=== PATIENT | female | born 1995 | race Caucasian/White ===

== ENCOUNTER 2020-01-17 21:56 | Emergency (ER) | payer MEDICAID, SELFPAY ==
[2020-01-17 21:56] VITALS: BP 114/91; PULSE 106; RESP 18; TEMP 37.1; O2SAT 100; BMI 23.2
--- NOTE | 2020-01-17 22:13 | XR_ITS ---
PROCEDURE: XR CHEST 2V CLINICAL HISTORY: chest pain COMPARISON: No exams were available for comparison FINDINGS: The cardiomediastinal silhouette and pulmonary vascularity are within normal limits. The lungs are clear without infiltrates, suspicious nodules, or pleural effusions. No acute bony abnormalities. IMPRESSION: No acute findings. Dictated by: Luis F Hebert 01/18/2020 08:43 Electronically signed by Luis F Hebert in [facility] 01/18/2020 08:43
--- NOTE | 2020-01-17 22:19 | ECG_ITS ---
APPROVED REPORT Exam: Resting ECG HR:103 bpm ECG Measurements Heart Rate 103 AXES MA 112 P 72 QRSd 84 QRS 61 QT 344 T 30 QTc 450 <Conclusion> Sinus tachycardia Otherwise normal ECG Electronically signed by : Mannie Gaviria, 01/21/2020 12:03:48
[2020-01-17 22:41] LABS: Chloride 106 mmol/L (98-107); Microscopic, Urine URINE MICROSCOPIC (MICROSCOPIC); Potassium 3.6 mmoL/L (3.5-5.1); Sodium 139 mmol/L (136-145)
[2020-01-17 22:44] LABS: Alanine Aminotransferase 46 U/L (12-78); Albumin Level 4.5 g/dl (3.5-5.0); Albumin/Globulin Ratio 1.4 (1.1-1.8); Alkaline Phosphatase 70 U/L (38-126); Anion Gap 10.6 mEq/L (5-15); Aspartate Amino Transferase 45 U/L (14-36); Bilirubin,Total 0.5 mg/dl (0.2-1.3); Blood Urea Nitrogen 12 mg/dl (7-17); Carbon Dioxide 26 mmol/L (22.0-30.0); Creatinine Clearance Estimated 88 mL/min (50-200); Estimated Glomerular Filt Rate 87 ml/min (>60); GFR (African American) 105 ML/MIN (>60); Globulin 3.3 g/dL (1.3-3.2); Total Protein,Serum 7.8 g/dl (6.3-8.2)
[2020-01-17 22:45] LABS: Calcium 8.8 mg/dl (8.4-10.2); Glucose 98 mg/dl (74-100)
[2020-01-17 22:47] LABS: Appearance,Urine CLEAR (Clear); Basophils # 0.1 K/mm3 (0-0.2); Basophils % 0.3 % (0.1-2.0); Bilirubin,Urine Negative (Negative); Blood, Urine Negative (Negative); Color,Urine YELLOW (Yellow); Eosinophils % 0.3 % (0.1-12.0); Glucose,Urine (UA) Negative (Negative); Hematocrit 45.7 % (37.0-47.0); Hemoglobin 15.1 g/dL (12.2-16.2); Ketones,Urine Negative (Negative); Leukocyte Esterase,Urine Negative (Negative); Lymphocytes # 5.2 K/mm3 (0.7-4.5); Lymphocytes % 33.7 % (10-50); Mean Corpuscular HGB Conc 33.1 g/dL (31.8-35.4); Mean Corpuscular Volume 96.6 fl (81-99); Mean Platelet Volume 8.1 fl (7.4-10.4); Monocytes # 9.6 K/mm3 (0.1-1.0); Monocytes % 62.6 % (1.7-9.3); Neutrophils # 0.5 K/mm3 (1.8-7.8); Nitrate,Urine POSITIVE (Negative); Platelet Count 245 K/mm3 (142-424); Protein,Urine 2+ (Negative); Red Blood Count 4.73 M/mm3 (4.20-5.40); Red Cell Distribution Width 12.9 % (11.5-17.5); Specific Gravity, Urine >= 1.030 (1.005-1.030); Urobilinogen,Urine 0.2 EU/dl (0.2); White Blood Count 15.4 K/mm3 (4.8-10.8)
[2020-01-17 22:53] LABS: MANUAL DIFFERENTIAL MANUAL DIFFERENTIAL (MANUAL DIFF); Neutrophils % 3.1 % (37.0-80.0)
[2020-01-17 22:57] LABS: Troponin I 0.03 ng/ml (0.00-0.034)
[2020-01-17 22:59] LABS: Barbiturates Screen,Urine Negative ng/ml (<200)
[2020-01-17 23:00] LABS: Benzodiazepines Screen,Urine Negative ng/ml (<200)
[2020-01-17 23:01] LABS: Cannabinoid Screen,Urine Positive ng/ml (<50)
[2020-01-17 23:02] LABS: Cocaine Screen,Urine Negative ng/ml (<300); Methadone Screen,Urine Negative ng/ml (<300)
[2020-01-17 23:03] LABS: Opiate Screen,Urine Positive ng/ml (<300); Phencyclidine Screen,Urine Negative ng/ml (<25)
[2020-01-17 23:04] LABS: Urine Pregnancy, HCG Qual. Negative (Negative)
[2020-01-17 23:10] LABS: Bacteria,Urine 2+ /lpf; Hyaline Casts,Urine Occasional #/lpf (0)
[2020-01-17 23:17] VITALS: BP 97/67; PULSE 85; RESP 18; TEMP 37.1; O2SAT 97
--- NOTE | 2020-01-17 23:30 | CT_ITS ---
PROCEDURE: CT ANGIO CHEST CLINCIAL INDICATION: Chest pain COMPARISON: No exams were available for comparison TECHNIQUE: IV Contrast: 70ML OPTIRAY 350 Axial images obtained with sagittal and coronal reformats. All CT scans at the facility use one or more dose reduction, viz: automated exposure control, ma/kV adjustment per patient size (including targeted exams where dose is matched to indication, i.e. head), or iterative reconstruction technique. FINDINGS: HEART AND MEDIASTINAL STRUCTURES: Unremarkable. LUNGS AND PLEURAL SPACES: Unremarkable. BONY STRUCTURES: No acute bony abnormalities apparent. UPPER ABDOMEN: Unremarkable. ADDITIONAL FINDINGS: No other significant abnormalities. IMPRESSION: Negative Dictated by: Luis F Hebert 01/18/2020 08:41 Electronically signed by Luis F Hebert in [facility] 01/18/2020 08:41
[2020-01-17 23:36] VITALS: BP 94/62; PULSE 97; O2SAT 100
[2020-01-17 23:42] LABS: Eosinophils % 1 % (0-3); Lymphocytes % 23 % (10-50); Monocytes % 2 % (2-9); Neutrophils % 74 % (42-76); Total Cells Counted 100
[2020-01-17 23:43] LABS: Platelet Estimate Normal; RBC Morphology Normal
[2020-01-17 23:56] LABS: Lactic Acid 1.1 mmol/L (0.7-2.1)
--- NOTE | 2020-01-18 00:14 | HMH.EDOD ---
ED Disposition Clinical Impression: Poisoning by opiate or related narcotic, Abnormal blood chemistry Drug overdose Qualifiers: Encounter type: initial encounter Injury intent: accidental or unintentional Qualified Code(s): T50.901A - Poisoning by unspecified drugs, medicaments and biological substances, accidental (unintentional), initial encounter Chest pain Qualifiers: Chest pain type: unspecified Qualified Code(s): R07.9 - Chest pain, unspecified Disposition: Home, Self-Care Condition on Discharge: Good Instructions: DI for Drug Overdose in Adults Additional Instructions: call dr for follow up about blood work and drug use Referrals: Prateek Palmer [Referring] - - Critical Care Critical Care Time: No Attestation: On 01/17/20, the high probability of a clinically significant, sudden or life threatening deterioration of the following system(s) required my full and direct attention, intervention and personal management. The time I documented below is in addition to time spent performing reported procedures but includes the following listed in this critical care notation. Medical Decision Making - Medical Records Medical records reviewed: Yes: I reviewed the patient's medical records. - John Inquiry Pt receiving controlled substance: No Vital Signs: 01/17/20 21:56 01/17/20 23:17 01/17/20 23:36 Temperature 98.7 F 98.7 F Temperature Source Oral Oral Pulse Rate [Right Brachial] 106 H 85 97 H Respiratory Rate 18 18 Blood Pressure [Right Arm] 114/91 H 97/67 L 94/62 L Blood Pressure Mean [Right Arm] 98 77 72 Blood Pressure Source [Right Arm] Automatic Cuff Automatic Cuff Blood Pressure Position [Right Arm] Supine 02 Sat by Pulse Oximetry 100 97 100 Oxygen Delivery Method Room Air Room Air Room Air 01/18/20 00:17 Temperature 98.1 F Temperature Source Oral Pulse Rate [Right Brachial] 105 H Respiratory Rate 18 Blood Pressure [Right Arm] 117/76 Blood Pressure Mean [Right Arm] 89 Blood Pressure Source [Right Arm] Automatic Cuff Blood Pressure Position [Right Arm] Supine 02 Sat by Pulse Oximetry 100 Oxygen Delivery Method Room Air - Lab Data Lab results reviewed: Yes: I reviewed the patient's lab results. Lab Results 01/17/20 22:30: Urine Color Yellow, Urine Appearance Clear, Urine pH 7.0, Ur Specific [place] >= 1.030, Urine Protein 2+, Urine Glucose (UA) Negative, Urine Ketones Negative, Urine Blood Negative, Urine Nitrate Positive, Urine Bilirubin Negative, Urine Urobilinogen 0.2, Ur Leukocyte Esterase Negative, Urine WBC 3-5, Ur Squamous Epith Cells 3-5, Urine Bacteria 2+, Hyaline Casts Occasional 01/17/20 22:30: WBC 15.4 H, RBC 4.73, Hgb 15.1, Hct 45.7, MCV 96.6, MCH 32.0 H, MCHC 33.1, RDW 12.9, Plt Count 245, MPV 8.1, Neut % (Auto) 3.1 L, Lymph % (Auto) 33.7, [place] % (Auto) 62.6 H, Eos % (Auto) 0.3, Baso % (Auto) 0.3, Neut # (Auto) 0.5 L*, Lymph # (Auto) 5.2 H, [place] # (Auto) 9.6 H, Eos # (Auto) 0.0, Baso # (Auto) 0.1, Total Counted 100, Neutrophils % (Manual) 74, Lymphocytes % (Manual) 23, Monocytes % (Manual) 2, Eosinophils % (Manual) 1, Differential Comment , Platelet Estimate Normal, RBC Morphology Normal 01/17/20 22:30: Urine HCG, Qual Negative 01/17/20 22:30: Sodium 139, Potassium 3.6, Chloride 106, Carbon Dioxide 26, Anion Gap 10.6, BUN 12, Creatinine 0.80, Estimated Creat Clear 88, Estimated GFR 87, Est GFR ( Amer) 105, Glucose 98, Calcium 8.8, Total Bilirubin 0.5, AST 45 H, ALT 46, Alkaline Phosphatase 70, Troponin I 0.03, Total Protein 7.8, Albumin 4.5, Globulin 3.3 H, Albumin/Globulin Ratio 1.4 01/17/20 22:30: Urine Opiates Screen Positive H, Urine Methadone Screen Negative, Ur Barbituates Screen Negative, Ur Phencyclidine Scrn Negative, Ur Amphetamines Screen Not Reportable, U Benzodiazepines Scrn Negative, Urine Cocaine Screen Negative, U Marijuana (THC) Screen Positive H 01/17/20 23:40: Lactate 1.1 Result diagrams: 01/17/20 22:30 01/17/20 22:30 Orders (Tests/Meds): ED M
[2020-01-18 00:17] VITALS: BP 117/76; PULSE 105; RESP 18; TEMP 36.7; O2SAT 100
[2020-01-18 00:55] VITALS: BP 100/67; PULSE 127; O2SAT 97
[2020-01-18 02:05] VITALS: BP 115/72; PULSE 108; RESP 16; TEMP 36.7; O2SAT 97
[2020-01-19 23:35] LABS: Peripheral Smear Review Scanned Result
[2020-01-22 23:10] LABS: Amphetamine Positive (.); Amphetamines Positive (.); Methamphetamine Positive (.)
[2020-01-23 04:45] LABS: Amphetamine (GC/MS) >4000 ng/mL (Cutoff=500); Methamphetamine (GC/MS) >4000 ng/mL (Cutoff=500)
== END 2020-01-18 02:09 | disposition home or self-care (01) ==
PROVIDERS: Emergency Provider Emergency Medicine; PCP Family Medicine
DX: R07.9 Chest pain, unspecified (principal); T40.2X1A Poisoning by other opioids, accidental (unintentional), initial encounter; F17.210 Nicotine dependence, cigarettes, uncomplicated
CPT/HCPCS: 36415; 71046; 71275; 80053; 80305; 80324; 81001; 81025; 83605; 84484; 85007; 85025; 87040; 87086; 87088; 87186; 93005; 96365; 99284; Q9967

== ENCOUNTER 2020-01-23 17:18 | Emergency (ER) | payer MEDICAID, SELFPAY ==
--- NOTE | 2020-01-23 17:17 | ECG_ITS ---
APPROVED REPORT Exam: Resting ECG HR:122 bpm ECG Measurements Heart Rate 122 AXES ND 124 P 81 QRSd 76 QRS 81 QT 302 T -24 QTc 430 <Conclusion> Sinus tachycardia Possible Left atrial enlargement T wave abnormality, consider inferior ischemia Abnormal ECG Electronically signed by : Andres Anthony, 01/27/2020 14:01:45
[2020-01-23 17:18] VITALS: BP 120/94; PULSE 120; RESP 18; TEMP 36.9; O2SAT 100; BMI 24.2
[2020-01-23 17:25] VITALS: BMI 24.2
--- NOTE | 2020-01-23 17:27 | CT_ITS ---
PROCEDURE: CT ANGIO CHEST CLINCIAL INDICATION: CHEST PAIN/CPR Chest pain, recent overdose with CPR COMPARISON: CT ANGIO CHEST from 01/17/2020 TECHNIQUE: IV Contrast: 70ML OPTIRAY 350 Axial images obtained with sagittal and coronal reformats. All CT scans at the facility use one or more dose reduction, viz: automated exposure control, ma/kV adjustment per patient size (including targeted exams where dose is matched to indication, i.e. head), or iterative reconstruction technique. FINDINGS: HEART AND MEDIASTINAL STRUCTURES: Unremarkable. No evidence of pulmonary embolus or aortic aneurysm or dissection LUNGS AND PLEURAL SPACES: There is minimal haziness of the lungs on both sides nonspecific. No definite lobar consolidation or collapse. BONY STRUCTURES: No acute bony abnormalities apparent. UPPER ABDOMEN: Unremarkable. ADDITIONAL FINDINGS: No other significant abnormalities. IMPRESSION: No evidence of acute pulmonary embolus or aortic aneurysm or dissection. Mild generalized haziness of the lungs nonspecific Dictated by: Lucas Rodriguez MD 01/24/2020 09:00 Electronically signed by Lucas Rodriguez MD in [facility] 01/24/2020 09:00
[2020-01-23 17:34] LABS: Microscopic, Urine URINE MICROSCOPIC (MICROSCOPIC)
[2020-01-23 17:35] LABS: Basophils # 0.1 K/mm3 (0-0.2); Basophils % 0.8 % (0.1-2.0); Eosinophils # 0.1 K/mm3 (0.0-0.4); Eosinophils % 0.7 % (0.1-12.0); Hematocrit 45.5 % (37.0-47.0); Hemoglobin 15.8 g/dL (12.2-16.2); Lymphocytes # 4.8 K/mm3 (0.7-4.5); Lymphocytes % 55.1 % (10-50); Mean Corpuscular HGB Conc 34.7 g/dL (31.8-35.4); Mean Corpuscular Hemoglobin 32.5 pg (27.0-31.2); Mean Corpuscular Volume 93.8 fl (81-99); Mean Platelet Volume 8.1 fl (7.4-10.4); Monocytes # 3.6 K/mm3 (0.1-1.0); Monocytes % 41.9 % (1.7-9.3); Neutrophils # 0.1 K/mm3 (1.8-7.8); Neutrophils % 1.6 % (37.0-80.0); Platelet Count 268 K/mm3 (142-424); Red Blood Count 4.85 M/mm3 (4.20-5.40); Red Cell Distribution Width 12.7 % (11.5-17.5); White Blood Count 8.7 K/mm3 (4.8-10.8)
[2020-01-23 17:36] LABS: MANUAL DIFFERENTIAL MANUAL DIFFERENTIAL (MANUAL DIFF)
[2020-01-23 17:37] LABS: Chloride 103 mmol/L (98-107); Sodium 139 mmol/L (136-145); Urine Pregnancy, HCG Qual. Negative (Negative)
[2020-01-23 17:39] VITALS: BP 122/79; PULSE 114; O2SAT 99
[2020-01-23 17:39] LABS: Alanine Aminotransferase 42 U/L (12-78); Alkaline Phosphatase 79 U/L (38-126); Aspartate Amino Transferase 40 U/L (14-36); Bilirubin,Total 0.6 mg/dl (0.2-1.3); Blood Urea Nitrogen 10 mg/dl (7-17); Creatinine Clearance Estimated 105 mL/min (50-200); Estimated Glomerular Filt Rate 101 ml/min (>60); GFR (African American) 122 ML/MIN (>60)
[2020-01-23 17:40] LABS: Appearance,Urine CLEAR (Clear); Bilirubin,Urine Negative (Negative); Blood, Urine Negative (Negative); Color,Urine YELLOW (Yellow); Glucose,Urine (UA) Negative (Negative); Ketones,Urine Negative (Negative); Leukocyte Esterase,Urine Negative (Negative); Nitrate,Urine POSITIVE (Negative); Protein,Urine Negative (Negative); Urobilinogen,Urine 0.2 EU/dl (0.2)
[2020-01-23 17:40] LABS: Albumin Level 4.8 g/dl (3.5-5.0); Albumin/Globulin Ratio 1.4 (1.1-1.8); Calcium 9.9 mg/dl (8.4-10.2); Carbon Dioxide 26 mmol/L (22.0-30.0); Globulin 3.5 g/dL (1.3-3.2); Glucose 70 mg/dl (74-100); Total Protein,Serum 8.3 g/dl (6.3-8.2)
[2020-01-23 17:45] LABS: Bacteria,Urine 2+ /lpf
[2020-01-23 17:48] VITALS: BP 99/75; PULSE 107; RESP 18; O2SAT 99
[2020-01-23 17:48] LABS: Barbiturates Screen,Urine Negative ng/ml (<200); Benzodiazepines Screen,Urine Negative ng/ml (<200)
[2020-01-23 17:49] LABS: Cannabinoid Screen,Urine Negative ng/ml (<50)
[2020-01-23 17:50] LABS: Cocaine Screen,Urine Negative ng/ml (<300); Methadone Screen,Urine Negative ng/ml (<300)
[2020-01-23 17:51] LABS: Opiate Screen,Urine Positive ng/ml (<300)
[2020-01-23 17:52] LABS: Phencyclidine Screen,Urine Negative ng/ml (<25)
[2020-01-23 17:55] LABS: Lymphocytes % 28 % (10-50); Monocytes % 6 % (2-9); Neutrophils % 66 % (42-76); Platelet Estimate Normal; RBC Morphology Normal; Total Cells Counted 100
[2020-01-23 17:57] LABS: Troponin I < 0.01 ng/ml (0.00-0.034)
[2020-01-23 18:24] VITALS: BP 139/63; PULSE 80; RESP 18; O2SAT 95
--- NOTE | 2020-01-23 18:27 | HMH.EDCP ---
ED Disposition Clinical Impression: Costalchondritis, Poisoning by opiate or related narcotic Disposition: Home, Self-Care Condition on Discharge: Good Referrals: Maninder Kimbrough [Primary Care Provider] - - Critical Care Critical Care Time: No Attestation: On 01/23/20, the high probability of a clinically significant, sudden or life threatening deterioration of the following system(s) required my full and direct attention, intervention and personal management. The time I documented below is in addition to time spent performing reported procedures but includes the following listed in this critical care notation. Medical Decision Making - Medical Records Medical records reviewed: Yes: I reviewed the patient's medical records. - John Inquiry Pt receiving controlled substance: No Vital Signs: 01/23/20 17:18 01/23/20 17:39 01/23/20 17:48 Temperature 98.4 F Temperature Source Oral Pulse Rate [Right] 120 H 114 H 107 H Respiratory Rate 18 18 Blood Pressure [Right Arm] 120/94 H 122/79 99/75 L Blood Pressure Mean [Right Arm] 102 93 83 Blood Pressure Source [Right Arm] Automatic Cuff Blood Pressure Position [Right Arm] Sitting 02 Sat by Pulse Oximetry 100 99 99 Oxygen Delivery Method Room Air Room Air Room Air 01/23/20 18:24 Temperature Temperature Source Pulse Rate [Right] 80 Respiratory Rate 18 Blood Pressure [Right Arm] 139/63 Blood Pressure Mean [Right Arm] 88 Blood Pressure Source [Right Arm] Blood Pressure Position [Right Arm] 02 Sat by Pulse Oximetry 95 Oxygen Delivery Method Room Air - Lab Data Lab results reviewed: Yes: I reviewed the patient's lab results. Lab Results 01/23/20 17:20: WBC 8.7, RBC 4.85, Hgb 15.8, Hct 45.5, MCV 93.8, MCH 32.5 H, MCHC 34.7, RDW 12.7, Plt Count 268, MPV 8.1, Neut % (Auto) 1.6 L, Lymph % (Auto) 55.1 H, [place] % (Auto) 41.9 H, Eos % (Auto) 0.7, Baso % (Auto) 0.8, Neut # (Auto) 0.1 L*, Lymph # (Auto) 4.8 H, [place] # (Auto) 3.6 H, Eos # (Auto) 0.1, Baso # (Auto) 0.1, Total Counted 100, Neutrophils % (Manual) 66, Lymphocytes % (Manual) 28, Monocytes % (Manual) 6, Differential Comment , Platelet Estimate Normal, RBC Morphology Normal 01/23/20 17:20: Urine HCG, Qual Negative 01/23/20 17:20: Sodium 139, Potassium 4.0, Chloride 103, Carbon Dioxide 26, Anion Gap 14.0, BUN 10, Creatinine 0.70, Estimated Creat Clear 105, Estimated GFR 101, Est GFR ( Amer) 122, Glucose 70 L, Calcium 9.9, Total Bilirubin 0.6, AST 40 H, ALT 42, Alkaline Phosphatase 79, Troponin I < 0.01, Total Protein 8.3 H, Albumin 4.8, Globulin 3.5 H, Albumin/Globulin Ratio 1.4 01/23/20 17:24: Urine Color Yellow, Urine Appearance Clear, Urine pH 6.0, Ur Specific [place] 1.020, Urine Protein Negative, Urine Glucose (UA) Negative, Urine Ketones Negative, Urine Blood Negative, Urine Nitrate Positive, Urine Bilirubin Negative, Urine Urobilinogen 0.2, Ur Leukocyte Esterase Negative, Urine RBC None, Urine WBC 3-5, Ur Squamous Epith Cells 3-5, Urine Bacteria 2+ 01/23/20 17:24: Urine Opiates Screen Positive H, Urine Methadone Screen Negative, Ur Barbituates Screen Negative, Ur Phencyclidine Scrn Negative, Ur Amphetamines Screen TNP, U Benzodiazepines Scrn Negative, Urine Cocaine Screen Negative, U Marijuana (THC) Screen Negative Result diagrams: 01/23/20 17:20 01/23/20 17:20 Orders (Tests/Meds): ED MEDICATIONS Generic Name Dose Route Start Last Admin Trade Name Freq PRN Reason Stop Dose Admin Sodium Chloride 1,000 mls @ 999 mls/hr 01/23/20 17:30 01/23/20 17:34 Sod Chlor 0.9% 1000ml Bag IV 01/23/20 18:30 999 mls/hr .Q1H1M ALICIA Administration Discontinued Medications Generic Name Dose Route Start Last Admin Trade Name Freq PRN Reason Stop Dose Admin Ioversol 70 ml 01/23/20 18:06 01/23/20 18:07 Rad-Optiray 350 150ml Vial IV 01/23/20 18:07 70 ml ONCE ONE Administration Sodium Chloride 50 ml 01/23/20 18:06 01/23/20 18:07 Rad-Ns 50ml Vial IV 01/23/20 18:07 50 ml
[2020-01-23 18:49] VITALS: BP 132/85; PULSE 100; RESP 18; TEMP 36.8; O2SAT 98
[2020-01-29 15:52] LABS: Amphetamine Positive (.); Amphetamines Positive (.); Methamphetamine Positive (.)
[2020-01-29 16:29] LABS: Amphetamine (GC/MS) 4746 ng/mL (Cutoff=500); Methamphetamine (GC/MS) >4000 ng/mL (Cutoff=500)
== END 2020-01-23 18:59 | disposition home or self-care (01) ==
PROVIDERS: Emergency Provider Family Medicine; PCP Family Medicine
DX: M94.0 Chondrocostal junction syndrome [Tietze] (principal); F11.10 Opioid abuse, uncomplicated; F17.210 Nicotine dependence, cigarettes, uncomplicated
CPT/HCPCS: 71275; 80053; 80305; 80324; 81001; 81025; 84484; 85007; 85025; 87086; 87088; 87186; 93005; 96365; 99284; Q9967

== ENCOUNTER 2024-06-05 10:31 | Emergency (ER) | payer MEDICAID, SELFPAY ==
[2024-06-05 10:34] VITALS: BP 120/75; PULSE 88; RESP 18; TEMP 36.7; O2SAT 100; BMI 24.2
--- NOTE | 2024-06-05 10:56 | HMH.EDGENADL ---
Discharge Plan Disposition Patient Disposition: Home, Self-Care Prescriptions Prescriptions: New bacitracin zinc 500 unit/gram ointment 1 applic topical Q6H Qty: 28.4 0RF Referrals Follow up/Referrals: Maninder Kimbrough MD [Primary Care Provider] - See instructions Activity Restrictions/Add. Instructions Additional Instructions/Restrictions: Apply ointment up to 4 times daily. Follow-up with your family doctor regarding this visit to the emergency department. Return to your family doctor or the ED if you have any further concerning symptoms. Clinical Impressions Clinical Impression: Superficial burn Instructions Patient Instructions: DI for Skin Abscess Print Language Print Language: Divehi Discharge ED Provider: Sunny Lopez General Adult HPI General Chief complaint: Skin/Abscess/Foreign Body Stated complaint: AO 06/05/24 0845, burn to left arm Time Seen by Provider: 06/05/24 10:37 Mode of Arrival: Ambulatory Source of Information: Patient Limitations: No Limitations Description of Symptoms (Recalled from ER Triage Doc. by RN): PT REPORTS BURN TO LEFT FOREARM WHILE AT WORK FROM HOT WATER THIS AM History of Present Illness HPI narrative: Please note that above description of symptoms, in this electronic medical record under categorization of recalled from ER triage doctor by RN are reflective of an initial nursing assessment, however, is not reflective of my full history and physical exam that was personally taken and clarified. Consequentially, this preceding description of symptoms, which may include the patient's categorized chief complaint in the EMR, do not reflect my personal clinical impression, and the ultimate description of history of present illness and patient stated complaints should be deferred to this section of the note. Unless stated otherwise or congruent with this section of the note, additional signs, symptoms, or incongruence should be interpreted as inaccurate with my clinical impression. Related Data Previous Rx's ?Medication ?Instructions ?Recorded bacitracin zinc 500 unit/gram 1 applic topical Q6H #28.4 grams 06/05/24 topical ointment Allergies Allergy/AdvReac Type Severity Reaction Status Date / Time No Known Allergies Allergy Unverified 07/12/17 14:54 [facility] Disclaimer: The information contained in this section may have been updated after the patient was seen, as this information can be updated by other users. Social History Smoking Status: Current every day smoker tobacco type: cigarettes packs per day: 1 alcohol intake: current substance use type: unknown current occupational status: employed Travel in the last 8 weeks: None caffeine: Yes Other Medical History Have you received the Flu Vaccine for this season: Yes Have you received the Pneumonia Vaccine: No ROS Obtained: Yes All systems reviewed & no additional complaints except as documented Physical Exam General General appearance: alert Head Head exam: atraumatic and normocephalic Eye Eye exam: Present normal appearance, PERRL and EOMI Neck Neck exam: Present normal inspection, full ROM and trachea midline Respiratory Respiratory exam: Absent respiratory distress, wheezes, stridor, accessory muscle use or prolonged expiratory phase Cardiovascular Cardiovascular exam: Present other (Pulses equal symmetric in upper and lower extremities) Abdominal Exam Abdominal exam: Present soft; Absent distention, tenderness or pulsatile mass Extremities Exam Extremities exam: Absent edema Neurological Exam Neurological exam: Present alert, oriented X3 and CN II-XII intact; Absent motor sensory deficit Skin Skin exam: Present warm, dry and erythema; Absent diaphoresis Medical Decision Making Medical Records Medical records reviewed: Yes I reviewed the patient's medical records. Screening: Per USPSTF and CDC recommendations, given the prevalence of disease in our region, it is our hospital?s policy to screen for HIV and viral Hepatitis for all patients aged 18 and over and those with ongoing risk factors. John Inquiry Pt receiving controlled substance: No John was queried for this patient: No Vital Signs: 06/05/24 10:34 Temperature 98.0 F Temperature Source Oral Pulse Rate [Radial] 88 Respiratory Rate 18 Blood Pressure [Right Arm] 120/75 Blood Pressure Mean [Right Arm] 90 Blood Pressure Source [Right Arm] Automatic Cuff Blood Pressure Position [Right Arm] Sitting 02 Sat by Pulse Oximetry 100 Oxygen Delivery Method Room Air Medical Decision Narrative: Otherwise healthy 28-year-old female presenting with water burn left arm. Patient states that she was at work when hot water spilled on her left arm. Having erythema, significant pain. Came in for further evaluation. This happened just before arrival. Patient states that pain is moderate, does not radiate, has not taken anything for it. History was obtained via conversation with patient. On arrival, patient hemodynamically stable, alert, oriented x4, appropriate, GCS 15, moving all extremities spontaneously, pupils equal and reactive to light. Full physical exam performed and significant for 8 cm x 4 cm oblong area of erythema on mid forearm dorsally left upper extremity. No evidence of blistering. Sensate, erythematous. Differential includes superficial burn, among others. Because patient so well-appearing, no other labs or imaging were deemed necessary, although they were considered. Bacitracin and zinc applied, this also sent to pharmacy. Because patient at baseline without signs or symptoms of clinical decompensation, deemed appropriate for discharge. I discussed my clinical impression with patient and answered all questions. At this time, the evidence for any other entities in the differential is insufficient to warrant any further testing or ED observation. This was explained as well. Advisory was given that persistent or worsening symptoms require further evaluation. I confirmed the understanding of this discussion. Griddle [employer] disclaimer Much of this encounter note is an electronic joint maker machine spoken language to printed text. Electronic joint maker machine of the spoken language may permit errors. Although I have reviewed the note, some errors may still exist. Critical Care Critical Care Time Critical Care Time: No
[2024-06-05] MEDS: BACITRACIN ZINC OINT 30GM TUBE TP (11:08)
[2024-06-05 11:14] VITALS: BP 113/76; PULSE 81; RESP 18; TEMP 36.9; O2SAT 100
== END 2024-06-05 11:00 | disposition home or self-care (01) ==
PROVIDERS: Emergency Provider Emergency Medicine; PCP Family Medicine
DX: T22.112A Burn of first degree of left forearm, initial encounter (principal)
CPT/HCPCS: 99282

== ENCOUNTER 2024-07-07 10:24 | Emergency (ER) | payer SELFPAY ==
[2024-07-07] VITALS (7 sets, daily range): BP systolic 110–151; BP diastolic 70–88; PULSE 76–88; RESP 16–20; TEMP 36.7–36.9; O2SAT 97–100; BMI 28.3
--- NOTE | 2024-07-07 11:41 | ED_ITS ---
Discharge Plan Disposition Patient Disposition: Home, Self-Care Condition: Good Prescriptions Prescriptions: New potassium chloride 20 mEq tablet extended release 20 meq PO BID Qty: 10 0RF Referrals Follow up/Referrals: Maninder Ruffin [Primary Care Provider] - See instructions Activity Restrictions/Add. Instructions Additional Instructions/Restrictions: Your potassium was low here in the ED and I am given you potassium to take for 5 days. Please call your PCP for repeat potassium level once you are done. Also call your OB for initial appointment. If you have any further problems or concerns please return to the ED immediately Clinical Impressions Clinical Impression: Abdominal pain, Instructions Patient Instructions: Diet, DI for Acute Abdominal Pain Print Language Print Language: Bengali Discharge ED Provider: Jenny Whelan [facility] [place] [facility]PI <Lit Mathias APRN - Last Filed: 07/07/24 11:41> General Chief complaint: Abdominal Pain Stated complaint: Abd. pain, no period 2 mths Time Seen by Provider: 07/07/24 11:40 Related Data Previous Rx's ?Medication ?Instructions ?Recorded potassium chloride 20 mEq 20 meq PO BID #10 tabs 07/07/24 tablet,extended release Allergies Allergy/AdvReac Type Severity Reaction Status Date / Time No Known Allergies Allergy Unverified 07/12/17 14:54 <Martina Roach (ED), [employer] - Last Filed: 07/07/24 15:35> History of Present Illness Provider Complaint: This is a 29-year-old female who presents today for complaint of lower abdominal pain that has been going on for the last month. She does have a history of endometriosis in the past. She says that she has been worried about this since she started spotting in May 30. She says typically her periods are irregular and has been on the pill but stopped the pill recently. Her last menstrual period was May 30 where she spotted for couple hours and then stopped. This made her suspicious but she did not take a test until yesterday. The test were positive. She took 4. She has no bleeding. She denies any fevers, chills, nausea or vomiting at this time. She does have one 8-year-old child that she delivered . She has had no history of miscarriages or difficulty during in the past. Her urine was normal at the [facility] today. She was sent over here for a ultrasound. [facility] <Lit Mathias APRN - Last Filed: 07/07/24 11:41> [facility] Disclaimer: The information contained in this section may have been updated after the patient was seen, as this information can be updated by other users. Social History Smoking Status: Current every day smoker tobacco type: cigarettes packs per day: 1 alcohol intake: current substance use type: unknown current occupational status: employed Travel in the last 8 weeks: None caffeine: Yes Have you lived/traveled outside [place] in past 30 days?: No Contact w/someone who lives/traveled outside US past 30 days?: No Exposure to someone with infectious disease in past 14 days?: No Do you have a fever (greater than 100.4 F or 38 C)?: No Have you tested positive for COVID-19: No Exposed to someone with COVID-19 in past 14 days?: No Do you have a sore throat?: No Do you have a cough?: No Do you have any weakness?: No Do you have any diarrhea?: No Are you experiencing any unusual bleeding?: No Do you have any muscle aches/pain?: No Do you have any abdominal pain?: Yes Are you experiencing loss of taste or smell?: No <Martina Roach (ED), [employer] - Last Filed: 07/07/24 15:35> ROS Obtained: Yes Systems reviewed as appropriate & no additional complaints except as documented Constitutional Constitutional: Reports as per HPI Physical Exam <Martina Roach (ED), [employer] - Last Filed: 07/07/24 15:35> General General appearance: alert and in no apparent distress Head Head exam: atraumatic and normocephalic Eye Eye exam: Present normal appearance, PERRL and EOMI ENT ENT exam: Present normal oropharynx and mucous membranes moist Neck Neck exam: Present normal inspection, full ROM and trachea midline Chest Chest inspection: Present normal inspection Respiratory Respiratory exam: Present normal lung sounds bilaterally Cardiovascular Cardiovascular exam: Present regular rate, normal rhythm, normal heart sounds, +S1 and +S2 Abdominal Exam Abdominal exam: Present soft and normal bowel sounds Extremities Exam Extremities exam: Present normal inspection, full ROM and normal capillary refill Back Exam Back exam: Present normal inspection Neurological Exam Neurological exam: Present alert, oriented X3 and normal gait Skin Skin exam: Present warm, dry and intact Medical Decision Making <Lit Stew, [employer] - Last Filed: 07/07/24 11:41> Medical Records Screening: Per USPSTF and CDC recommendations, given the prevalence of disease in our region, it is our hospital?s policy to screen for HIV and viral Hepatitis for all patients aged 18 and over and those with ongoing risk factors. Lab Data 07/07/24 12:45 07/07/24 12:45 <Martina Roach (ED), [employer] - Last Filed: 07/07/24 15:35> John Inquiry Pt receiving controlled substance: No John was queried for this patient: No Medical Decision Narrative: Insert review patient is a 29-year-old female presenting to the emergency department for evaluation of lower abdominal pain and positive test yesterday. She went to the urgent treatment center today and was also positive again in her urine for .. Patient is hemodynamically stable and nontoxic-appearing upon arrival, afebrile. Differential diagnosis includes ectopic, normal , miscarriage among others. Workup will be conducted with hematologic labs, specific imaging including ultrasound. Initial inventions include urine test, basic labs and ultrasound. Initial workup reviewed by me positive hCG at 11,868 with an ultrasound with the embryo in the uterus, read by Dr Whelan. Imaging informally interpreted by me and remarkable for 5 week 3 days gestation in uterus. Ultrasound was not formally read but Dr Whelan okay with discharging with the informal read. Upon repeat evaluation patient's pain is improved. Patient to follow up with PCP for repeat potassium as it was 2.9. She received 40 Meq here in the ED. She is also to follow with her OB. Patient safe to discharge home.
[2024-07-07 11:49] LABS: Apearance,Urine Clear (Clear); Color,Urine Orange (Yellow)
[2024-07-07 11:50] LABS: Bilirubin,Urine Negative (Negative); Blood, Urine Negative (Negative); Glucose,Urine (UA) Negative (Negative); Ketones,Urine TRACE (Negative); Protein,Urine 1+ (Negative); Specific Gravity, Urine 1.025 (1.005-1.030); UTC Leukocyte Esterase,Urine Negative (Negative); UTC Nitrate,Urine Negative (Negative); UTC Pregnancy Test, Urine Positive (Negative); Urobilinogen,Urine 0.2 EU/dl (0.2)
--- NOTE | 2024-07-07 12:30 | ED_ITS ---
<Statement entered by Jenny Whelan DO - 07/07/24 15:54> I was consulted by the DENNISE, and we discussed the complexity of the problems being addressed. I approved the treatment and management plan for this patient's care in the emergency department, thus performing a substantive portion of the medical decision making. Jenny Whelan DO Discharge Plan Disposition Patient Disposition: Home, Self-Care Condition: Good Prescriptions Prescriptions: New potassium chloride 20 mEq tablet extended release 20 meq PO BID Qty: 10 0RF Referrals Follow up/Referrals: Maninder Ruffin [Primary Care Provider] - See instructions Activity Restrictions/Add. Instructions Additional Instructions/Restrictions: Your potassium was low here in the ED and I am given you potassium to take for 5 days. Please call your PCP for repeat potassium level once you are done. Also call your OB for initial appointment. If you have any further problems or concerns please return to the ED immediately Clinical Impressions Clinical Impression: Abdominal pain, Instructions Patient Instructions: Diet, DI for Acute Abdominal Pain Print Language Print Language: Yoruba Discharge ED Provider: Jenny Whelan General Adult HPI <Jenny Whelan DO - Last Filed: 07/07/24 15:55> General Chief complaint: Abdominal Pain Stated complaint: Abd. pain, no period 2 mths Time Seen by Provider: 07/07/24 11:40 Mode of Arrival: Ambulatory Source of Information: Patient Limitations: No Limitations Description of Symptoms (Recalled from ER Triage Doc. by RN): lower abdominal pain. positive preg History of Present Illness HPI narrative: Provider Complaint: This is a 29-year-old female who presents today for complaint of lower abdominal pain that has been going on for the last month. She does have a history of endometriosis in the past. She says that she has been worried about this since she started spotting in May 30. She says typically her periods are irregular and has been on the pill but stopped the pill recently. Her last menstrual period was May 30 where she spotted for couple hours and then stopped. This made her suspicious but she did not take a test until yesterday. The test were positive. She took 4. She has no bleeding. She denies any fevers, chills, nausea or vomiting at this time. She does have one 8-year-old child that she delivered . She has had no history of miscarriages or difficulty during in the past. Her urine was normal at the [facility] today. She was sent over here for a ultrasound. Related Data Previous Rx's ?Medication ?Instructions ?Recorded potassium chloride 20 mEq 20 meq PO BID #10 tabs 07/07/24 tablet,extended release Allergies Allergy/AdvReac Type Severity Reaction Status Date / Time No Known Allergies Allergy Unverified 07/12/17 14:54 PFSH <Jenny Whelan DO - Last Filed: 07/07/24 15:55> [facility] Disclaimer: The information contained in this section may have been updated after the patient was seen, as this information can be updated by other users. Social History Smoking Status: Current every day smoker tobacco type: cigarettes packs per day: 1 alcohol intake: current substance use type: unknown current occupational status: employed Travel in the last 8 weeks: None caffeine: Yes Have you lived/traveled outside [place] in past 30 days?: No Contact w/someone who lives/traveled outside US past 30 days?: No Exposure to someone with infectious disease in past 14 days?: No Do you have a fever (greater than 100.4 F or 38 C)?: No Have you tested positive for COVID-19: No Exposed to someone with COVID-19 in past 14 days?: No Do you have a sore throat?: No Do you have a cough?: No Do you have any weakness?: No Do you have any diarrhea?: No Are you experiencing any unusual bleeding?: No Do you have any muscle aches/pain?: No Do you have any abdominal pain?: Yes Are you experiencing loss of taste or smell?: No Other Medical History Have you received the Flu Vaccine for this season: Yes Have you received the Pneumonia Vaccine: No <Martina Roach (ED), CAREER DEVELOPMENT CONSULTANT - Last Filed: 07/07/24 15:48> ROS Obtained: Yes Systems reviewed as appropriate & no additional complaints except as documented Physical Exam <Jenny Whelan DO - Last Filed: 07/07/24 15:55> General General appearance: alert and in no apparent distress Head Head exam: atraumatic and normocephalic Eye Eye exam: Present normal appearance, PERRL and EOMI ENT ENT exam: Present normal exam, normal oropharynx, mucous membranes moist and normal external ear exam Neck Neck exam: Present normal inspection, full ROM and trachea midline; Absent tenderness Chest Chest inspection: Present normal inspection and symmetric chest wall rise; Absent tenderness Abdominal Exam Abdominal exam: Present soft; Absent distention, tenderness or guarding Extremities Exam Extremities exam: Present normal inspection, full ROM and normal capillary refill; Absent tenderness or edema Back Exam Back exam: Present normal inspection and full ROM; Absent tenderness Psychiatric Psychiatric exam: Present normal affect and normal mood Skin Skin exam: Present warm and dry <Martina Roach (HORACE), CAREER DEVELOPMENT CONSULTANT - Last Filed: 07/07/24 15:48> Respiratory Respiratory exam: Present normal lung sounds bilaterally Cardiovascular Cardiovascular exam: Present regular rate, +S1 and +S2 Neurological Exam Neurological exam: Present alert and oriented X3 Medical Decision Making <Jenny Whelan, DO - Last Filed: 07/07/24 15:55> Medical Records Medical records reviewed: Yes I reviewed the patient's medical records. Screening: Per USPSTF and CDC recommendations, given the prevalence of disease in our region, it is our hospital?s policy to screen for HIV and viral Hepatitis for all patients aged 18 and over and those with ongoing risk factors. Vital Signs: 07/07/24 11:43 07/07/24 12:10 07/07/24 12:31 Temperature 98.1 F 98.4 F Temperature Source Oral Oral Pulse Rate 82 Pulse Rate [Left Radial] 82 76 Respiratory Rate 20 18 Blood Pressure 123/78 Blood Pressure [Left Arm] 125/82 151/88 H Blood Pressure Mean Blood Pressure Mean [Left Arm] 96 109 Blood Pressure Source Blood Pressure Position 02 Sat by Pulse Oximetry 100 99 99 Oxygen Delivery Method Room Air 07/07/24 13:00 07/07/24 13:46 07/07/24 14:00 Temperature Temperature Source Pulse Rate 81 88 79 Pulse Rate [Left Radial] Respiratory Rate 16 Blood Pressure 143/75 H 121/73 110/75 Blood Pressure [Left Arm] Blood Pressure Mean 90 Blood Pressure Mean [Left Arm] Blood Pressure Source Blood Pressure Position 02 Sat by Pulse Oximetry 97 99 99 Oxygen Delivery Method Room Air Room Air 07/07/24 15:33 Temperature 98.3 F Temperature Source Oral Pulse Rate 80 Pulse Rate [Left Radial] Respiratory Rate 18 Blood Pressure 112/70 Blood Pressure [Left Arm] Blood Pressure Mean Blood Pressure Mean [Left Arm] Blood Pressure Source Automatic Cuff Blood Pressure Position Sitting 02 Sat by Pulse Oximetry Oxygen Delivery Method Room Air Lab Data Lab results reviewed: Yes I reviewed the patient's lab results. Lab Results 07/07/24 11:32: Urine Color Yellow, Urine Appearance Clear, Urine pH 6.0, Ur Specific [place] 1.025, Urine Protein 1+ A, Urine Glucose (UA) Negative, Urine Ketones Trace, Urine Blood Negative, Urine Nitrate Negative, Urine Bilirubin Negative, Urine Urobilinogen 0.2, Ur Leukocyte Esterase Negative, Urine RBC None, Urine WBC Occasional, Ur Squamous Epith Cells Occasional, Urine Bacteria None 07/07/24 11:44: Urine Color [place], Urine Appearance Clear, Urine pH 6.0, Ur Specific [place] 1.025, Urine Protein 1+, Urine Glucose (UA) Negative, Urine Ketones Trace, Urine Blood Negative, Urine Nitrate Negative, Urine Bilirubin Negative, Urine Urobilinogen 0.2, Ur Leukocyte Esterase Negative, [facility] Positive 07/07/24 12:13: HIV Ag/Ab Combo Qual Negative 07/07/24 12:45: WBC 11.9 H, RBC 4.22, Hgb 13.6, Hct 40.4, MCV 95.7, MCH 32.2 H, MCHC 33.7, RDW 13.9, Plt Count 276, MPV 8.2, Neut % (Auto) 1.3 L, Lymph % (Auto) 63.1 H, [place] % (Auto) 33.1 H, Eos % (Auto) 1.3, Baso % (Auto) 1.2, Neut # (Auto) 0.2 L*, Lymph # (Auto) 7.5 H, [place] # (Auto) 3.9 H, Eos # (Auto) 0.2, Baso # (Auto) 0.1, Sodium 137, Potassium 2.9 L*, Chloride 107, Carbon Dioxide 25, Anion Gap 7.9, BUN 8, Creatinine 0.80, Estimated Creat Clear 102, Estimated GFR 84, Est GFR ( Amer) 101, Glucose 67 L, Calcium 8.5, Total Bilirubin 0.5, AST 33, ALT 15, Alkaline Phosphatase 87, Total Protein 7.1, Albumin 4.1, Globulin 3.0, Albumin/Globulin Ratio 1.4, Lipase 127, HCG, Quant 12083 H, Blood Type O Positive 07/07/24 12:45 07/07/24 12:45 Orders (Tests/Meds): ED MEDICATIONS Discontinued Medications Generic Name Dose Route Start Last Admin Trade Name Daquan PRN Reason Stop Dose Admin Potassium Chloride 40 meq 07/07/24 13:16 07/07/24 13:28 Potassium Chloride 20meq Tab PO 07/07/24 13:17 40 meq ONCE ONE Administration ORDERS Category Date Time Status ABO/RH Type Stat BBK 07/07/24 12:45 Completed Beta HCG, Quant [HCG,Quantitative] Stat Lab 07/07/24 12:45 Completed CBC [Complete Blood Count Auto Diff] Stat Lab 07/07/24 12:45 Results Comprehensive Metabolic Panel Stat Lab 07/07/24 12:45 Completed HIV Combo Stat Lab 07/07/24 12:13 Completed Hep C Ab with Reflex to RNA Stat Lab 07/07/24 12:13 Ordered Lipase Stat Lab 07/07/24 12:45 Completed UA [Urinalysis and Microscopic] Stat Lab 07/07/24 11:32 Completed Urine Culture Stat Micro 07/07/24 11:44 Ordered US OB transvaginal Stat Ultrasound 07/07/24 13:27 Completed Medical Decision Narrative: Insert review patient is a 29-year-old female presenting to the emergency department for evaluation of lower abdominal pain and positive test yesterday. She went to the urgent treatment center today and was also positive again in her urine for .. Patient is hemodynamically stable and nontoxic-appearing upon arrival, afebrile. Differential diagnosis includes ectopic, normal , miscarriage among others. Workup will be conducted with hematologic labs, specific imaging including ultrasound. Initial inventions include urine test, basic labs and ultrasound. Initial workup reviewed by me positive hCG at 11,868 with an ultrasound with the embryo in the uterus, read by Dr Whelan. Imaging informally interpreted by me and remarkable for 5 week 3 days gestation in uterus. Ultrasound was not formally read but Dr Whelan okay with discharging with the informal read. Upon repeat evaluation patient's pain is improved. Patient to follow up with PCP for repeat potassium as it was 2.9. She received 40 Meq here in the ED. She is also to follow with her OB. Patient safe to discharge home. <Martina Roach (ED), CAREER DEVELOPMENT CONSULTANT - Last Filed: 07/07/24 15:48> John Inquiry Pt receiving controlled substance: No Vital Signs: 07/07/24 11:43 07/07/24 12:10 07/07/24 12:31 Temperature 98.1 F 98.4 F Temperature Source Oral Oral Pulse Rate 82 Pulse Rate [Left Radial] 82 76 Respiratory Rate 20 18 Blood Pressure 123/78 Blood Pressure [Left Arm] 125/82 151/88 H Blood Pressure Mean Blood Pressure Mean [Left Arm] 96 109 Blood Pressure Source Blood Pressure Position 02 Sat by Pulse Oximetry 100 99 99 Oxygen Delivery Method Room Air 07/07/24 13:00 07/07/24 13:46 07/07/24 14:00 Temperature Temperature Source Pulse Rate 81 88 79 Pulse Rate [Left Radial] Respiratory Rate 16 Blood Pressure 143/75 H 121/73 110/75 Blood Pressure [Left Arm] Blood Pressure Mean 90 Blood Pressure Mean [Left Arm] Blood Pressure Source Blood Pressure Position 02 Sat by Pulse Oximetry 97 99 99 Oxygen Delivery Method Room Air Room Air 07/07/24 15:33 Temperature 98.3 F Temperature Source Oral Pulse Rate 80 Pulse Rate [Left Radial] Respiratory Rate 18 Blood Pressure 112/70 Blood Pressure [Left Arm] Blood Pressure Mean Blood Pressure Mean [Left Arm] Blood Pressure Source Automatic Cuff Blood Pressure Position Sitting 02 Sat by Pulse Oximetry Oxygen Delivery Method Room Air Lab Data Lab Results 07/07/24 11:32: Urine Color Yellow, Urine Appearance Clear, Urine pH 6.0, Ur Specific [place] 1.025, Urine Protein 1+ A, Urine Glucose (UA) Negative, Urine Ketones Trace, Urine Blood Negative, Urine Nitrate Negative, Urine Bilirubin Negative, Urine Urobilinogen 0.2, Ur Leukocyte Esterase Negative, Urine RBC None, Urine WBC Occasional, Ur Squamous Epith Cells Occasional, Urine Bacteria None 07/07/24 11:44: Urine Color [place], Urine Appearance Clear, Urine pH 6.0, Ur Specific [place] 1.025, Urine Protein 1+, Urine Glucose (UA) Negative, Urine Ketones Trace, Urine Blood Negative, Urine Nitrate Negative, Urine Bilirubin Negative, Urine Urobilinogen 0.2, Ur Leukocyte Esterase Negative, [facility] Positive 07/07/24 12:13: HIV Ag/Ab Combo Qual Negative 07/07/24 12:45: WBC 11.9 H, RBC 4.22, Hgb 13.6, Hct 40.4, MCV 95.7, MCH 32.2 H, MCHC 33.7, RDW 13.9, Plt Count 276, MPV 8.2, Neut % (Auto) 1.3 L, Lymph % (Auto) 63.1 H, [place] % (Auto) 33.1 H, Eos % (Auto) 1.3, Baso % (Auto) 1.2, Neut # (Auto) 0.2 L*, Lymph # (Auto) 7.5 H, [place] # (Auto) 3.9 H, Eos # (Auto) 0.2, Baso # (Auto) 0.1, Sodium 137, Potassium 2.9 L*, Chloride 107, Carbon Dioxide 25, Anion Gap 7.9, BUN 8, Creatinine 0.80, Estimated Creat Clear 102, Estimated GFR 84, Est GFR ( Amer) 101, Glucose 67 L, Calcium 8.5, Total Bilirubin 0.5, AST 33, ALT 15, Alkaline Phosphatase 87, Total Protein 7.1, Albumin 4.1, Globulin 3.0, Albumin/Globulin Ratio 1.4, Lipase 127, HCG, Quant 82252 H, Blood Type O Positive Orders (Tests/Meds): ED MEDICATIONS Discontinued Medications Generic Name Dose Route Start Last Admin Trade Name Freq PRN Reason Stop Dose Admin Potassium Chloride 40 meq 07/07/24 13:16 07/07/24 13:28 Potassium Chloride 20meq Tab PO 07/07/24 13:17 40 meq ONCE ONE Administration ORDERS Category Date Time Status ABO/RH Type Stat BBK 07/07/24 12:45 Completed Beta HCG, Quant [HCG,Quantitative] Stat Lab 07/07/24 12:45 Completed CBC [Complete Blood Count Auto Diff] Stat Lab 07/07/24 12:45 Results Comprehensive Metabolic Panel Stat Lab 07/07/24 12:45 Completed HIV Combo Stat Lab 07/07/24 12:13 Completed Hep C Ab with Reflex to RNA Stat Lab 07/07/24 12:13 Ordered Lipase Stat Lab 07/07/24 12:45 Completed UA [Urinalysis and Microscopic] Stat Lab 07/07/24 11:32 Completed Urine Culture Stat Micro 07/07/24 11:44 Ordered US OB transvaginal Stat Ultrasound 07/07/24 13:27 Completed Critical Care <Martina Roach (ED), CAREER DEVELOPMENT CONSULTANT - Last Filed: 07/07/24 15:48> Critical Care Time Critical Care Time: No
[2024-07-07 12:40] LABS: Microscopic, Urine URINE MICROSCOPIC (MICROSCOPIC)
[2024-07-07 12:41] LABS: Appearance,Urine CLEAR (Clear); Bilirubin,Urine Negative (Negative); Blood, Urine Negative (Negative); Color,Urine YELLOW (Yellow); Glucose,Urine (UA) Negative (Negative); Ketones,Urine TRACE (Negative); Leukocyte Esterase,Urine Negative (Negative); Nitrate,Urine Negative (Negative); Protein,Urine 1+ (Negative); Specific Gravity, Urine 1.025 (1.005-1.030); Urobilinogen,Urine 0.2 EU/dl (0.2)
[2024-07-07 12:54] LABS: Squamous Epithelial Cell,Urine Occasional #/hpf (0-5); WBC,Urine Occasional #/hpf (0-3)
[2024-07-07 12:55] LABS: Albumin Level 4.1 g/dl (3.5-5.0); Chloride 107 mmol/L (98-107); Sodium 137 mmol/L (136-145)
[2024-07-07 12:57] LABS: Alanine Aminotransferase 15 U/L (12-78); Anion Gap 7.9 mEq/L (5-15); Aspartate Amino Transferase 33 U/L (14-36); Blood Urea Nitrogen 8 mg/dl (7-17); Carbon Dioxide 25 mmol/L (22.0-30.0); Creatinine Clearance Estimated 102 mL/min (50-200); Estimated Glomerular Filt Rate 84 ml/min (>60); GFR (African American) 101 ML/MIN (>60)
[2024-07-07 12:58] LABS: Albumin/Globulin Ratio 1.4 (1.1-1.8); Alkaline Phosphatase 87 U/L (38-126); Bilirubin,Total 0.5 mg/dl (0.2-1.3); Calcium 8.5 mg/dl (8.4-10.2); Glucose 67 mg/dl (74-100); Lipase 127 U/L (23-300); Total Protein,Serum 7.1 g/dl (6.3-8.2)
[2024-07-07 13:04] LABS: Basophils # 0.1 K/mm3 (0-0.2); Basophils % 1.2 % (0.1-2.0); Eosinophils # 0.2 K/mm3 (0.0-0.4); Eosinophils % 1.3 % (0.1-12.0); Hematocrit 40.4 % (37.0-47.0); Hemoglobin 13.6 g/dL (12.2-16.2); Lymphocytes # 7.5 K/mm3 (0.7-4.5); Lymphocytes % 63.1 % (10-50); Mean Corpuscular HGB Conc 33.7 g/dL (31.8-35.4); Mean Corpuscular Hemoglobin 32.2 pg (27.0-31.2); Mean Corpuscular Volume 95.7 fl (81-99); Mean Platelet Volume 8.2 fl (7.4-10.4); Monocytes # 3.9 K/mm3 (0.1-1.0); Monocytes % 33.1 % (1.7-9.3); Neutrophils # 0.2 K/mm3 (1.8-7.8); Platelet Count 276 K/mm3 (142-424); Red Blood Count 4.22 M/mm3 (4.20-5.40); Red Cell Distribution Width 13.9 % (11.5-17.5); White Blood Count 11.9 K/mm3 (4.8-10.8)
--- NOTE | 2024-07-07 13:04 | PC.NURSE ---
CRITICAL K+ 2.9 PT NAME AND R/Rik JUARES NOTIFIED
[2024-07-07 13:05] LABS: Neutrophils % 1.3 % (37.0-80.0); Potassium 2.9 mmoL/L (3.5-5.1)
[2024-07-07 13:06] LABS: MANUAL DIFFERENTIAL MANUAL DIFFERENTIAL (MANUAL DIFF)
[2024-07-07 13:15] LABS: HCG,Quantitative 11868 mIU/ml (0-5.42)
--- NOTE | 2024-07-07 13:27 | US_ITS ---
PROCEDURE INFORMATION: Exam: US , Transvaginal Exam date and time: 07/07/2024 2:10 PM Age: 29 years old Clinical indication: complicated by abdominal or pelvic pain; Lower; First trimester (<14 weeks 0 days); Gestational age or lmp: 5w 6d; ; Additional info: + preg, abd pain LABS AND CLINICAL REPORTS: Last menstrual period start date: 05/30/2024 Gestational age (Established): 5 w 3 d Estimated due date (Established): 03/06/2025 TECHNIQUE: Imaging protocol: Real-time transvaginal obstetrical ultrasound of the maternal pelvis with image documentation. Transvaginal imaging was used for better evaluation of the fetus, adnexa, and/or cervix. Total images: 1431 COMPARISON: No relevant prior studies available. FINDINGS: Gestation: Yolk sac measures 4.7 mm. Intrauterine gestation noted. pole is not seen at this time. BIOMETRY: Gestational age (AUA): 5 w 6 d Estimated due date (AUA): 03/03/2025 [place] rump length (CRL): 2.2 mm. EGA (CRL) is 5 w 5 d MATERNAL: Uterus: Small fluid collection noted at the tip of the endometrium. Etiology is uncertain. Right ovary/adnexa: Right ovary measures 1.04 cm x 1.56 cm x 2.06 cm. Right ovarian volume is 1.75 mL. Left ovary/adnexa: Left ovary measures 2.68 cm x 2.45 cm x 2.31 cm. Left ovarian volume is 7.94 mL. Intraperitoneal space: No free fluid noted within the cul-de-sac. IMPRESSION: 1. Intrauterine gestation noted. 2. Average gestational age (AUA) 5 weeks 6 days. 3. Small fluid collection noted at the tip of the endometrium. Etiology is uncertain. 4. No free fluid noted within the cul-de-sac.
[2024-07-07] MEDS: POTASSIUM CHLORIDE 20MEQ TAB 40 MEQ PO (13:28)
--- NOTE | 2024-07-07 13:30 | PC.NURSE ---
BEATA Garcia compelted and asked radiology to call in u/s
--- NOTE | 2024-07-07 14:16 | PC.NURSE ---
PT to US
--- NOTE | 2024-07-07 14:17 | PC.NURSE ---
PT TO US
--- NOTE | 2024-07-07 14:50 | PC.NURSE ---
PT RETURNED FROM US
[2024-07-07 15:01] LABS: HIV Combo NEGATIVE (Negative)
[2024-07-07 17:38] LABS: Lymphocytes % 44 % (10-50); Monocytes % 37 % (2-9); Neutrophils % 19 % (42-76); Platelet Estimate Normal; RBC Morphology Normal; Total Cells Counted 100
[2024-07-11 22:17] LABS: HCV Ab Reactive (Non Reactive)
== END 2024-07-07 15:33 | disposition home or self-care (01) ==
LOC: UTC 10:36 → ER 12:05
PROVIDERS: Nurse Practitioner; Nurse Practitioner Family; Emergency Provider Emergency Medicine; PCP Internal Medicine Cardiovascular Disease
DX: Z34.90 Encounter for supervision of normal pregnancy, unspecified, unspecified trimester (principal); R10.30 Lower abdominal pain, unspecified
CPT/HCPCS: 76817; 80053; 81001; 81003; 81025; 83690; 84702; 85007; 85025; 85027; 86803; 86900; 86901; 87086; 87389; 99283